=== PATIENT | female | born 1960 | race Caucasian/White ===

== ENCOUNTER 2019-05-01 10:38 | Outpatient (CLI) | payer BC ==
[2019-05-01] MEDS ORDERED: MULT-516 PO (11:14)
[2019-05-01] MEDS ORDERED: IBUP-1223 PO (11:14)
[2019-05-01] MEDS ORDERED: OMEG-72 PO (11:33)
[2019-05-01 11:52] LABS: BASOPHILS # (AUTO) 0.03 x10^3/uL (0-0.1); BASOPHILS % (AUTO) 0 % (0-1); EOSINOPHILS # (AUTO) 0.17 x10^3/uL (0-0.4); EOSINOPHILS % (AUTO) 3 % (1-7); LYMPHOCYTES # (AUTO) 2.53 x10^3/uL (1-3.4); LYMPHOCYTES % (AUTO) 37 % (22-44); MD NO; MEAN CORPUSCULAR HEMOGLOBIN 31.6 pg (27.0-34.8); MEAN CORPUSCULAR VOLUME 93.2 fL (80-100); MEAN PLATELET VOLUME 6.8 fL (7.4-10.4); MONOCYTES # (AUTO) 0.36 x10^3/uL (0.2-0.8); MONOCYTES % (AUTO) 5 % (2-9); NEUTROPHILS # (AUTO) 3.78 x10^3/uL (1.8-6.8); NEUTROPHILS % (AUTO) 55 % (42-75); PLATELET COUNT 385 x10^3/uL (130-400); RED BLOOD COUNT 4.47 x10^6/uL (3.82-5.3); RED CELL DISTRIBUTION WIDTH 12.3 % (9.6-15.2)
[2019-05-01 11:58] LABS: ALBUMIN 4.3 g/dL (3.4-5.0); ANION GAP 9 mmol/L (5-15); CALCIUM 9.2 mg/dL (8.5-10.1); CHLORIDE 107 mmol/L (98-107)
[2019-05-01 12:00] LABS: INTERNATIONAL NORMALIZED RATIO 1.02 (0.93-1.1); PROTHROMBIN TIME 10.7 Seconds (9.6-11.5)
[2019-05-01 12:01] LABS: ALANINE AMINOTRANSFERASE 19 U/L (12-78); ALKALINE PHOSPHATASE 79 U/L (45-117); BILIRUBIN,TOTAL 0.6 mg/dL (0.2-1.0); CREATININE 0.74 mg/dL (0.55-1.02); TOTAL PROTEIN 7.9 g/dL (6.4-8.2)
[2019-05-01 13:03] LABS: HEMOGLOBIN A1C 5.4 % (4.2-6.3)
== END 2019-05-01 23:59 | disposition home or self-care (01) ==
LOC: STAR 10:38
PROVIDERS: ATTEND Orthopaedic Surgery
DX: Z01.818 Encounter for other preprocedural examination (principal); M16.11 Unilateral primary osteoarthritis, right hip
CPT/HCPCS: 36415; 80053; 83036; 85025; 85610; 85730; 87081; 93005

== ENCOUNTER 2019-06-25 06:58 | Inpatient (IN) | payer BC ==
[~2019-06-25] VITALS: Ht 160 cm; Wt 68.7 kg
[~2019-06-25 06:58] MED LIST: EPINEPHRINE 1 MG/ML, 1ML ONE; IBUP-1223 PO; KETOROLAC 60 MG/2 ML ONE; MELO7.5T31 PO; MULT-516 PO; OMEG-72 PO; OXYC5CAP2 PO; OXYC5TAB3 PO; ROPIvacaine/PF 0.5%, 30 ML ONE; SODIUM CHLORIDE 0.9% 50 ML ONE; TRAM50TA2 PO; TRANEXAMIC ACID 100 MG/ML, 10ML ONE; VANCOMYCIN 1,000 MG ONE
[2019-06-25] MEDS ORDERED: TRANEXAMIC ACID 100 MG/ML, 10ML ONE (07:14)
[2019-06-25] MEDS ORDERED: LACTATED RINGERS 1,000 ML IV SCH (07:33)
[2019-06-25] MEDS ORDERED: ACETAMINOPHEN 500 MG TABLET PO STA (07:33)
[2019-06-25] MEDS ORDERED: GABAPENTIN 300 MG CAPSULE PO STA (07:33)
[2019-06-25] MEDS ORDERED: MIDAZOLAM 1 MG/ML, 2ML ONE (07:42)
[2019-06-25] MEDS ORDERED: LIDOCAINE-MPF 2% ,5ML ONE (07:42)
[2019-06-25] MEDS ORDERED: FENTANYL PF 250 MCG/5ML ONE (07:42)
[2019-06-25] MEDS ORDERED: LIDOCAINE-MPF 1%, 2ML ONE (07:45)
[2019-06-25] MEDS ORDERED: LIDOCAINE-MPF 1%, 2ML INFIL ONE (08:00)
[2019-06-25] MEDS ORDERED: NS + 20MEQ KCL 1,000 ML IV SCH (08:22)
[2019-06-25] MEDS ORDERED: ZOLPIDEM 5MG TABLET PO PRN (08:30)
[2019-06-25] MEDS ORDERED: BISACODYL 10 MG SUPP PR PRN (08:30)
[2019-06-25] MEDS ORDERED: HYDROcodone/APAP 5/325 TABLET PO PRN (08:30)
[2019-06-25] MEDS ORDERED: MAGNESIUM HYDROXIDE 8%, 30ML UDC PO PRN (08:30)
[2019-06-25] MEDS ORDERED: ONDANSETRON 4 MG TABLET PO PRN (08:30)
[2019-06-25] MEDS ORDERED: OXYcodone IR 5MG TABLET PO PRN (08:30)
[2019-06-25] MEDS ORDERED: SCOPOLAMINE PATCH, 1.5MG PATCH.TD72 TD ONE (08:30)
[2019-06-25] MEDS ORDERED: DIPHENHYDRAMINE 50 MG CAPSULE PO PRN (08:30)
[2019-06-25] MEDS ORDERED: SENNA/DOCUSATE TABLET PO PRN (08:30)
[2019-06-25] MEDS ORDERED: ACETAMINOPHEN 325 MG TABLET PO PRN (08:30)
[2019-06-25] MEDS ORDERED: ONDANSETRON 2MG/ML, 2ML IV PRN (08:30)
[2019-06-25] MEDS ORDERED: hydrALAzine 20 MG/ML, 1ML IV PRN (09:00)
[2019-06-25] MEDS ORDERED: PROMETHAZINE 25 MG/ML, 1ML IV PRN (09:00)
[2019-06-25] MEDS ORDERED: DOCUSATE 100 MG CAPSULE PO SCH (09:00)
[2019-06-25] MEDS ORDERED: MEPERIDINE/PF 25MG/ML,1ML IVPush PRN (09:00)
[2019-06-25] MEDS ORDERED: DIAZEPAM 5 MG/ML, 2ML IVPush PRN (09:00)
[2019-06-25] MEDS ORDERED: HYDROmorphone 2 MG/ML, 1ML IVPush PRN (09:00)
[2019-06-25] MEDS ORDERED: ALBUTEROL/IPRATROPIUM 2.5MG/0.5MG, 3 ML NPPB PRN (09:00)
[2019-06-25] MEDS ORDERED: LABETALOL 5MG/ML, 20ML IV PRN (09:00)
[2019-06-25] MEDS ORDERED: OXYcodone 5 MG/5 ML ORAL.SOL UDC PO PRN (09:00)
[2019-06-25] MEDS ORDERED: MIDAZOLAM 1 MG/ML, 2ML IV PRN (09:00)
[2019-06-25] MEDS ORDERED: GLYCOPYRROLATE 0.2MG/1ML, 5ML ONE (09:07)
[2019-06-25] MEDS ORDERED: PROPOFOL 10 MG/ML, 20ML ONE (09:07)
[2019-06-25] MEDS ORDERED: NEOSTIGMINE 1 MG/ML, 10ML ONE (09:07)
[2019-06-25] MEDS ORDERED: ONDANSETRON 2MG/ML, 2ML ONE (09:07)
[2019-06-25] MEDS ORDERED: ROCURONIUM 10MG/ML,5ML ONE (09:07)
[2019-06-25] MEDS ORDERED: LIDOCAINE GEL 2%, 5ML ONE (09:07)
[2019-06-25] MEDS ORDERED: DEXAMETHASONE 4 MG/ML, 1ML ONE (09:07)
[2019-06-25] MEDS ORDERED: CEFAZOLIN 1,000 MG ONE (09:07)
[2019-06-25] MEDS ORDERED: FENTANYL PF 100 MCG/2ML ONE ×2 (09:23→09:48)
[2019-06-25] MEDS ORDERED: OXYcodone 5 MG/5 ML ORAL.SOL UDC ONE (09:48)
[2019-06-25] MEDS: FENTANYL PF 100 MCG/2ML IV PRN ×2 (09:48→10:08)
[2019-06-25] MEDS ORDERED: MELO7.5T5 PO (15:51)
[2019-06-25] MEDS ORDERED: TRAM50TA2 PO (15:51)
[2019-06-25] MEDS ORDERED: OXYC5CAP2 PO (15:52)
[2019-06-25] MEDS ORDERED: CEFAZOLIN PMX 2GM/50ML 50 ML IVPB SCH (17:30)
[2019-06-25] MEDS ORDERED: ASPIRIN 81 MG TABLET EC PO SCH (18:00)
[2019-06-26] MEDS ORDERED: DEXAMETHASONE 4 MG/ML, 1ML IVPush SCH (06:00)
== END 2019-06-25 16:48 | disposition home or self-care (01) | DRG 470 ==
LOC: ORIP 06:58 → 4NE 10:40
PROVIDERS: ADMIT Orthopaedic Surgery; ATTEND Orthopaedic Surgery
PROC: 0SRB06A Replacement of Left Hip Joint with Oxidized Zirconium on Polyethylene Synthetic Substitute, Uncemented, Open Approach (ICD-10-PCS; principal; 2019-06-25 08:45)
DX: M16.12 Unilateral primary osteoarthritis, left hip (principal); J45.909 Unspecified asthma, uncomplicated; Z82.61 Family history of arthritis
CPT/HCPCS: 72170; 73501; J3490; C1713; G0378; J0171; J0690; J1100; J1885; J2250; J2405; J2704; J2710; J2795; J3010; J3370; C1776; J7120